=== PATIENT | male | born 1970 | race Caucasian/White ===

== ENCOUNTER → 2024-01-03 15:06 | Outpatient (REF) | payer OTHER, SELFPAY | LOC: PAVMRI 15:06 | PROVIDERS: ATTENDING PHYSICIAN Nurse Practitioner; FAMILY PHYSICIAN Hospitalist | DX: R41.3 Other amnesia (principal) | CPT/HCPCS: 70551 ==

== ENCOUNTER → 2024-02-22 10:42 | Outpatient (REF) | payer OTHER, SELFPAY | LOC: MRI 10:42 | PROVIDERS: ATTENDING PHYSICIAN Nurse Practitioner; FAMILY PHYSICIAN Hospitalist | DX: G95.20 Unspecified cord compression (principal) | CPT/HCPCS: 72141 ==